=== PATIENT | female | born 1965 | race Caucasian/White ===

== ENCOUNTER → 2022-04-09 | Outpatient (CLI) | payer OTHER, SELFPAY ==
[2022-04-09 09:19] LABS: Absolute Lymphocyte Count 1.66 X10^3/uL (0.83-4.51); Absolute Neutrophil Count 4.6 X10^3/uL (2.0-7.7); Basophil# 0.04 X10^3/uL; Basophil% 0.6 % (0-1); Eosinophil# 0.14 X10^3/uL; Eosinophils% 2.1 % (0-5); Hematocrit 40.9 % (37-47); Hemoglobin 12.8 g/dL (12.0-15.0); Lymphocyte # 1.66 X10^3/ul (0.83-4.51); Lymphocyte % 24.4 % (19-41); Mean Corp Hgb Conc 31.3 g/dL (32-36); Mean Corpuscular Hgb 27.2 pg (27.0-32.0); Mean Corpuscular Volume 86.8 fL (81-99); Mean Platelet Vol. 8.6 fl (6.2-12.0); Monocyte# 0.37 X10^3/uL; Monocyte% 5.4 % (0-10); NRBC Flagged by Analyzer 0 % (0-5); Neutrophil # 4.57 X10^3/uL (2.7-7.7); Neutrophil % 67.1 % (47-70); Platelet Count 351 K/mm3 (150-450); RBC Distribution Width CV 15.1 % (11.6-14.6); RBC Distribution Width SD 48.3 fl (35.1-43.9); Red Blood Count 4.71 M/mm3 (4.2-5.4); White Blood Count 6.8 K/mm3 (4.4-11.0)
[2022-04-09 09:22] LABS: Prothrombin Time (Protime)PT. 12.6 SECONDS (11.7-14.9)
[2022-04-09 09:25] LABS: Erythrocyte Sedimentation Rate 46 mm/hr (0-30)
[2022-04-09 09:40] LABS: ALB/GLOB Ratio 0.7 RATIO (0.9-2.4); AST(SGOT) 21 U/L (15-37); Alanine Aminotransfer ALT/SGPT 31 U/L (13-56); Albumin, Serum 3.3 g/dL (3.2-5.0); Alkaline Phosphatase 195 U/L (45-117); Anion Gap 7 (5-15); BUN 12 mg/dL (7-18); Chloride 102 mmol/L (98-107); Creatinine, Serum 0.71 mg/dL (0.55-1.02); EST Glomerular Filtration Rate 91 mL/min (>60); Est Glom Filt Rate - Afr Amer 110 mL/min (>60); Ferritin 106 ng/mL (8-252); Globulin 4.6 g/dL (2.2-4.2); Glucose 106 mg/dL (74-106); LDH 200 U/L (84-246); Potassium 3.9 mmol/L (3.5-5.1); Protein, Total 7.9 g/dL (6.4-8.2); Sodium Level 139 mmol/L (136-145)
[2022-04-09 10:04] LABS: HIV - WCH Non-Reactive (Nonreactive)
[2022-04-10 15:08] LABS: Anti-Centromere B Ab <0.2 AI (0.0-0.9); Anti-Chromatin <0.2 AI (0.0-0.9); Anti-Jo <0.2 AI (0.0-0.9); Anti-Scleroderma-70 AB <0.2 AI (0.0-0.9); RNP Ab 0.2 AI (0.0-0.9); SJOGREN'S Anti-SS-A test < 0.2 AI (0.0-0.9); SJOGREN'S Anti-SS-B test < 0.2 AI (0.0-0.9); Smith Ab <0.2 AI (0.0-0.9)
[2022-04-10 19:16] LABS: Anti-Mitochondrial AB <20.0 Units (0.0-20.0); Anti-dsDNA Ab <1 IU/mL (0-9)
[2022-04-12 15:07] LABS: Angiotensin Convert Enzyme 41 U/L (14-82); Ceruloplasmin 41.1 mg/dL (19.0-39.0); Cytoplasmic Ab (C-ANCA) <1:20 titer (Neg:<1:20); HEPATITIS B SURFACE AG Negative (Negative); Hep C Antibodies Non Reactive (Non Reactive); Hepatitis A IgM Antibody Negative (Negative); Hepatitis B Core AB IgM Negative (Negative)
[2022-04-12 15:38] LABS: AFP, Tumor Marker < 1.8 ng/mL (0.0-9.2); Anti-Smooth Muscle ABS 8 Units (0-19); Copper, Serum or Plasma 174 ug/dL (80-158); Haptoglobin 235 mg/dL (33-346); Perinuclear Ab (P-ANCA) <1:20 titer (Neg:<1:20)
== END | disposition home or self-care (01) ==
LOC: LAB 08:50
PROVIDERS: PCP Physician Assistant; Referring Provider Nurse Practitioner Adult Health; Visit Provider Nurse Practitioner Adult Health
DX: K76.0 Fatty (change of) liver, not elsewhere classified (principal); K76.89 Other specified diseases of liver
CPT/HCPCS: 36415; 80053; 80074; 82105; 82140; 82164; 82390; 82525; 82728; 83010; 83036; 83516; 83615; 85025; 85610; 85652; 86140; 86225; 86235; 86256; 86703

== ENCOUNTER → 2022-04-22 | Outpatient (CLI) | payer OTHER, SELFPAY ==
--- NOTE | 2022-04-22 07:43 | US_ITS ---
STUDY: ABDOMINAL ULTRASOUND - ELASTOGRAPHY REASON FOR VISIT: Female, 57 years old. Fatty infiltration of the liver. TECHNIQUE: Liver stiffness measurements were obtained on a [employer] RS 85 ultrasound machine using a CA 1-7 probe following the SRU guidelines. 3 measurements were obtained using a 2-D-SWE method. The IQR/M was 15% suggesting a quality data set. TECHNICAL QUALITY: Adequate. COMPARISON: Comparison is made with prior study done earlier today. FINDINGS: Liver: Fatty infiltration of the liver. Median liver stiffness measured 9.3 kPa. US/Elastography Parenchyma/Organ IMPRESSION: Liver stiffness measures 9.3 kPa compatible with F2-F3 (Mild to moderate liver fibrosis) Metavir score. Electronically Signed: Armando Cheema MD at 14:14 EST ,
--- NOTE | 2022-04-22 07:43 | US_ITS ---
STUDY: ABDOMINAL ULTRASOUND - RIGHT UPPER QUADRANT REASON FOR VISIT: Female, 57 years old fatty liver, liver cysts TECHNIQUE: Ultrasound evaluation of the right upper quadrant was performed with real-time and static wong-scale imaging. TECHNICAL QUALITY: Adequate. COMPARISON: Comparison is made with prior CT scan of the abdomen and pelvis dated 01/17/2022. FINDINGS: Liver: The liver measures 16.5 cm. There is increased echogenicity consistent with fatty infiltration. The bile ducts are within normal limits. There is hepatic color flow. The direction of portal flow is hepatopetal. Multiple cysts are seen throughout the liver. The largest cyst is in the right lobe of liver and measures 7.8 cm x 6.3 cm x 7 cm. Gallbladder: Normal distended gallbladder. The gallbladder wall measures 2.0 mm. There is a negative sonographic Michael''s sign. There is no pericholecystic fluid. There is a solitary echogenic gallstone within the gallbladder. This measures 1.4 cm x 1.2 cm x 1.4 cm. This stone is in the neck of the gallbladder. Common Bile Duct (C.B.D.): The common bile duct measures 2.0 mm. Pancreas: There is nonvisualization of the pancreas due to overlying bowel gas. Right Kidney: Normal size of the right kidney. The right kidney measures 10.1 cm x 5.6 x 4.8 cm. Normal renal cortex. The right cortex measures 1.9 cm. There is no demonstrated renal mass or cyst. There is no right hydronephrosis. US/Abdomen Limited IMPRESSION: Fatty infiltration of the liver. Hepatic cysts. Solitary gallstone. Electronically Signed: Armando Cheema MD at 14:09 EST ,
== END | disposition home or self-care (01) ==
LOC: US 07:41
PROVIDERS: PCP Physician Assistant; Visit Provider Nurse Practitioner Adult Health
DX: K76.0 Fatty (change of) liver, not elsewhere classified (principal); K76.89 Other specified diseases of liver
CPT/HCPCS: 76705; 76981

== ENCOUNTER → 2022-05-25 | Outpatient (CLI) | payer OTHER, SELFPAY ==
--- NOTE | 2022-05-25 06:27 | MRI_ITS ---
STUDY: MR CHOLANGIOPANCREATOGRAPHY (MRCP) REASON FOR EXAM: Female, 57 years old. Polycystic liver disease. TECHNIQUE: Standard MRCP technique was utilized. 3-D thick slab reconstructions were performed. COMPARISON: Abdominal ultrasound, April 22, 2022. CT the abdomen and pelvis, January 17, 2022. FINDINGS: Gall Bladder: There is a 1.3 x 1.0 x 1.0 cm calculus in the gallbladder. The gallbladder is otherwise unremarkable. Cystic duct: Normal with no demonstrated fixed filling defect. Intrahepatic ducts: Normal visualized intrahepatic ducts with no demonstrated fixed filling defect, dilation or stricture. Common hepatic duct: Normal with no demonstrated fixed filling defect, dilation or stricture. Common bile duct: Normal with no demonstrated fixed filling defect, dilation or stricture. Pancreatic duct: Normal with no demonstrated fixed filling defect, dilation or stricture. The lung bases are clear. The heart is normal in size. There is a prominent left lateral lobe of the liver. There are multiple cysts within the liver. The largest in segment 5, measures 7.7 x 5.8 x 7.3 cm. Normal pancreas. Normal spleen. Normal adrenal glands. Normal kidneys. Normal IVC and abdominal aorta. Normal retroperitoneum. Normal stomach. Normal visualized small bowel. Normal visualized skull MRI/MRCP Abdomen without Contrast IMPRESSION: 1. Gallstone without acute cholecystitis. Otherwise normal MR Cholangiopancreatography (MRCP). 2. Multiple hepatic cysts. 3. No other evidence of upper abdominal abnormality. Electronically Signed: Dennis Cummins DO at 22:57 EDT ,
== END | disposition home or self-care (01) ==
LOC: MRI 06:27
PROVIDERS: PCP Physician Assistant; Referring Provider Nurse Practitioner Adult Health; Visit Provider Nurse Practitioner Adult Health
DX: R74.8 Abnormal levels of other serum enzymes (principal); K76.0 Fatty (change of) liver, not elsewhere classified; Q44.6 Cystic disease of liver
CPT/HCPCS: 74181

== ENCOUNTER → 2022-11-02 | Outpatient (CLI) | payer OTHER, SELFPAY ==
--- NOTE | 2022-11-02 10:50 | TOBX_PTH ---
PATIENT: CARMEN SIDDIQI [facility] U#:[id number] AGE/SX: 57/F ROOM: RE11/02/[address]: Dr. Bassam Johnson MD : 1965 BED: DIS: 11/02/2022 SPEC #: [id number] RECD: 11/02/22 15:04 STATUS: DENIS REEde #: [id number] VIKKI: 11/02/22 10:[address]: Bassam Johnson DEPT: SURGICAL PATHOLOGY RECD BY: Jaki Swartz ENTERED: 11/03/22 08:54 SP TYPE: TONGUE BX OTHR DR: DON Schwartz [facility] Tissues: Tongue, NOS Procedures: Surgery Specimen Level IV HEADER OPERATION: Left excision tongue lesion PRE-OP DIAGNOSIS: Neoplasm of tongue TISSUE SUBMITTED: Left lateral tongue lesion MICROSCOPIC DIAGNOSIS Left lateral tongue lesion, excision: A piece of squamous mucosa with acanthosis, parakeratosis, reactive changes and subepithelial fibrosis. Negative for malignancy. See comment. ARMEN:coby 11/04/2022 COMMENT The findings may represent irritation fibroma. Clinical correlation and appropriate follow up are necessary. MICROSCOPIC DESCRIPTION Slides are reviewed. GROSS DESCRIPTION Received in fixative is one container labeled with the patient's name and designated left lateral tongue lesion. The specimen consists of a piece of collins mucosal tissue measuring 0.3 x 0.2 x 0.1 cm. The entire specimen is submitted in one cassette. / ARMEN:coyb 11/03/2022 TC:5 CPT: 52258
== END | disposition home or self-care (01) ==
LOC: LABSPEC 15:38
PROVIDERS: PCP Physician Assistant; Referring Provider Otolaryngology; Visit Provider Otolaryngology
DX: D37.02 Neoplasm of uncertain behavior of tongue (principal)
CPT/HCPCS: 88305

== ENCOUNTER 2023-05-17 09:16 | Day surgery (SDC) | payer OTHER, SELFPAY ==
[2023-05-17 09:33] VITALS: BP 142/65; PULSE 92; RESP 16; TEMP 36.8; O2SAT 97; BMI 35.0
--- NOTE | 2023-05-17 09:33 | HP.PCM_ITS ---
History and Physical Date of Admission: 05/17/23 CARMEN SIDDIQI, is a 58 F who presents to the office today for follow up. f/u NAFLD, liver cysts No further RUQ discomfort. When she established with us in 03/2022 she reported RUQ discomfort after long day at work, had been bothersome for several months. Mild intermittent acid reflux after certain foods is managed with otc famotidine prn. No nausea, vomiting, dysphagia. Bowels are regular. No melena or hematochezia. Liver cyst -- Incidental finding of liver cyst on MRI that was done for back pain--MRI in 08/2021 showed an 8 cm lesion in right lobe of liver, possible cyst or hemangioma, it was larger than on prior MRI. This was followed by RUQ US in 08/2021--8.1 cm right hepatic cyst, fatty liver, [address] abd pel with IV contrast was done in 12/2021 at [facility] when she presented with abdominal pain; CT showed 6.7 cm cyst in right lobe of liver, 2 small cysts in left lobe of liver. 04/2022 I viewed images of liver on CT from [facility] with Dr Khan--polycystic liver disease, possible they are causing pain by stretching the capsule. He recommended MRCP which was done on 05/25/22: multiple hepatic cysts, gallstone w/o cholecystitis, otherwise normal. She declined referral to general surgery for gallstone since asymptomatic. NAFLD -- 04/2022 Liver elastography revealed liver stiffness 9.3 kpa compatible with F2-F3 Metavir score. Biochemical eval: lots of inflammation--esr 46, crp 30; a1c 6 so prediabetic range; alk phos 196; elevated copper, ceruloplasmin. Sh e started vitamin E 800 IU daily in 04/2022. Also working on wt loss, increased exercise, fewer sweets. on disability secondary to accident, had TBI, so she takes care of him as well as helping her father. She works party plan sales unit sales leader. OV 02/26/2023: Patient came for liver cyst, fatty liver/NAFLD. Does not have abdominal pain. No acute symptoms. No fever. No dysuria. ROS Const Constitutional: No fatigue ENT ENT: No difficulty swallowing Gastro GI: No abdominal pain, belching, bloating, change in bowel habits, change in stool character, coffee ground emesis, constipation, cramping, diarrhea, heartburn, difficulty swallowing, feeling full early, excessive flatus, incontinent of stools, Vomiting blood/hematemesis, Blood in stool, loose stools, Black,tarry stools, nausea/dyspepsia, pain with swallowing, vomiting or other Musc Musculoskeletal: No joint pain Skin Skin: No yellowing of the eye or itchy eyes Psych Psychiatric: No anxiety and No depression Endo Endocrine: No fatigue Aller/Imm Allergy/Immunologic: No itchy eyes Rayray/Lymp Hematologic/Lymphatic: No easy bleeding or easy bruising Exam Const General: cooperative, no acute distress and well developed Nutritional Appearance: average body habitus Orientation: alert, awake and oriented x3 HENMT Head: normocephalic and atraumatic Nose: external nose normal Face and sinus: normal facial exam Mouth: moist mucous membranes Eyes Pupils: PERRL EOM: EOM intact bilaterally Neck Neck: normal visual inspection, no meningeal signs and trachea midline Carotids: no bruits Chest Chest palpation & inspection: normal inspection of the chest Resp Effort & Inspection: normal respiratory effort and symmetric chest movement Auscultation: Bilateral: Clear to Auscultation Cardio Palpation: normal PMI Rate: regular rate Rhythm: regular rhythm Heart Sounds: S1 normal and S2 normal GI Auscultation: normal bowel sounds Percussion: normal to percussion Palpation: soft, no hepatosplenomegaly and no guarding Other: Liver not enlarged. Spleen not palpable. No tenderness guarding or rigidity. General: bimanual renal exam normal bilaterally, bladder normal to inspection and bladder normal to palpation Bimanual Exam- Vagina & Uterus: bladder normal to palpation Musc Musculoskeletal: No joint tenderness, joint redness, joint warmth or decreased range of motion Thoracic/Lumbar Spine: thor and lumb spine abnorm to inspection Skin General: rashes and/or lesions noted, turgor normal and no erythema Wounds: wound noted Neuro General: patient alert, patient awake, patient oriented x3 and no focal motor deficits Speech: speech normal Motor: muscle tone normal throughout Extrem General: normal exam except as noted Psych Appearance: grossly normal Mood: congruent mood Affect: normal affect Attitude: cooperative Quality Reporting Tobacco Screening ([facility] [address]) Smoking Status: Never smoker Assessment and Plan Assessment and Plan (1) Liver, polycystic: Status: Chronic Plan: Patient came to follow-up with incidental finding of liver cyst and MRI done for back pain in June 2021 about 8 cm in the right lobe of liver. After that patient had CT abdomen in December 2021 which shows liver cyst 6.7 cm similar in size. After that patient had liver ultrasound with elastography and MRCP which showed similar size of the liver cyst. MRCP shows multiple liver cyst largest one 7.7 x 5.8 x 7.3 cm in segment 5. There is incidental finding of 1.3 x 1.0 x 1.0 calculus in GB but otherwise gallbladder unremarkable with normal intrahepatic and extrahepatic biliary system with no filling defect or stricture or dilatation. Normal spleen and pancreas. Normal kidneys and adrenal gland. Overall it seems stable over 1.5 years. Patient does not have symptoms/asymptomatic. Review increased size more than 7 cm there is increased chance of rupture more so more on the surface of the segment 5. Patient is referred to [facility] for second opinion and also possible percutaneous aspiration with sclerosing is not. Other options are laparoscopic deroofing or complete cyst excision. I do not order repeat CT or MRI as [facility] would like to repeat in the system before intervention. Total time of the visit including total time spent in counseling or coordination of care, (more than 50% of the total time, spent in obtaining medical information from nurses and other ancillary care providers,explaining to the patient about labs, imaging, differential diagnosis and management of liver cyst is 40 minutes. (2) NAFLD (nonalcoholic fatty liver disease): Status: Chronic Plan: Last blood work reviewed. A1c 6.0 suggestive of prediabetes. Liver elastography 9.3 kPa suggestive of mild to moderate liver fibrosis. Rest of the liver ultrasound with similar increased echogenicity and multiple liver cyst and largest liver cyst as mentioned above. I discussed the risk factors, pathogenesis, natural history complications including HCC of metabolic dysfunction associated steatotic liver disease, MASLD and patient affirmed understanding. There is no approved FDA medication for NAFLD but medications used for diabetes and weight loss mainly to metformin, pioglitazone and GLP-1 agonist have been found to decrease fatty content and fibrosis score found in the research literature. As patient has prediabetes as per last blood work therefore discussed the benefits and risk of metformin and patient agreed to take it. Prescription for metformin sent to the patient's pharmacy. Orders: Orders AFP, Tumor Marker 1 Week K76.0 - Fatty (change of) liver, not elsewhere classified, Q44.6 - Cystic disease of liver, R74.8 - Abnormal levels of other serum enzymes CBC W/Diff, Automated 1 Week K76.0 - Fatty (change of) liver, not elsewhere clas sified, Q44.6 - Cystic disease of liver, R74.8 - Abnormal levels of other serum enzymes Hemoglobin A1c 1 Week K76.0 - Fatty (change of) liver, not elsewhere classified, Q44.6 - Cystic disease of liver, R74.8 - Abnormal levels of other serum enzymes CRP 1 Week K76.0 - Fatty (change of) liver, not elsewhere classified, Q44.6 - Cystic disease of liver, R74.8 - Abnormal levels of other serum enzymes Comprehensive Metabolic Profil 1 Week K76.0 - Fatty (change of) liver, not elsewhere classified, Q44.6 - Cystic disease of liver, R74.8 - Abnormal levels of other serum enzymes Prothrombin Time w/INR 1 Week K76.0 - Fatty (change of) liver, not elsewhere classified, Q44.6 - Cystic disease of liver, R74.8 - Abnormal levels of other serum enzymes Lipid Profile 1 Week K76.0 - Fatty (change of) liver, not elsewhere classified, Q44.6 - Cystic disease of liver, R74.8 - Abnormal levels of other serum enzymes BREANNE w/ Reflex Mult Confirm 1 Week K76.0 - Fatty (change of) liver, not elsewhere classified, Q44.6 - Cystic disease of liver, R74.8 - Abnormal levels of other serum enzymes Medications: New metformin 500 mg PO BID 1 month 60 tabs 2RF I have examined the patient and the H&P has been reviewed. There are no clinical changes since date of exam.
[2023-05-17] MEDS: Lactated Ringers 1,000 ML 15 ML IV (09:49)
--- NOTE | 2023-05-17 10:30 | COLBX_PTH ---
PATIENT: CARMEN SIDDIQI LOC: [facility] U#:[id number] AGE/SX: 58/F ROOM: RE05/17/[address]: Dr. Darrin Khan DO : 1965 BED: DIS: 05/17/2023 SPEC #: [id number] RECD: 05/17/23 11:29 STATUS: DENIS REEde #: [id number] VIKKI: 05/17/23 10:[address]: Darrin Khan DEPT: SURGICAL PATHOLOGY RECD BY: Jaki Swartz ENTERED: 05/17/23 11:59 SP TYPE: COLON BX OTHR DR: DON Schwartz Tissues: A - Descending colon B - Rectum, NOS Procedures: Surgery Specimen Level IV HEADER OPERATION: Colonoscopy with biopsy PRE-OP DIAGNOSIS: Liver, polycystic, NAFLD TISSUE SUBMITTED: A- Descending colon polyp biopsy, B- Rectum polyp biopsy MICROSCOPIC DIAGNOSIS A. Descending colon polyp, biopsy; Fragments of hyperplastic polyp. B. Rectum polyp, biopsy; Hyperplastic polyp. / 05/18/2023 MICROSCOPIC DESCRIPTION Slides are reviewed. GROSS DESCRIPTION A. Received in fixative is one container labeled with the patient's name and designated Liver Descending colon polyp biopsy. The specimen consists of multiple irregular fragments of light collins soft tissue that in aggregate measure 1.0 x 0.3 x 0.1 cm. The specimen is totally submitted in one cassette. B. Received in fixative is one container labeled with the patient's name and designated Rectum polyp biopsy. The specimen consists of one irregular fragment of light collins soft tissue that measures 0.3 x 0.3 x 0.1 cm. The specimen is totally submitted in one cassette. / 05/17/23 TC:1 CPT: 56392r9
[2023-05-17 10:51] VITALS: BP 142/65; PULSE 86; RESP 16; TEMP 36.4; O2SAT 97
--- NOTE | 2023-05-17 10:53 | OP.CCLET_ITS ---
05/17/2023 Cely Ball Re : Colonoscopy procedure for Sushila Richardson Quinn This procedure was performed on Wednesday, May 17, 2023. My impressions and recommendations are as follows: Impressions : - Two 1 to 2 mm polyps in the rectum and in the descending colon, removed with a cold snare. Resected and retrieved. - Diverticulosis in the recto-sigmoid colon, in the sigmoid colon, in the descending colon and in the ascending colon. Recommendations : - Discharge patient to home. - Resume previous diet. - Continue present medications. - Await pathology results. - Repeat colonoscopy in 5 years for surveillance. My findings are described in the full procedure note, which is enclosed. If I can be of further assistance, please feel free to contact me at . Sincerely, Darrin Khan, 05/17/2023 10:53:01 AM This report has been signed electronically.
--- NOTE | 2023-05-17 10:53 | OP.COLON_ITS ---
Patient Name: Sushila Fischer Procedure Date: 05/17/2023 10:27 AM Date of : 1965 Age: 58 Procedure: Colonoscopy Indications: Screening for colorectal malignant neoplasm Providers: Darrin Khan DO Medicines: Monitored Anesthesia Care Patient Profile: This is a 58 year old female. Refer to note in patient chart for documentation of history and physical. Last Colonoscopy: date unknown. Unable to locate last colonoscopy report. Complications: No immediate complications. Procedure: Pre-Anesthesia Assessment: - Prior to the procedure, a History and Physical was performed, and patient medications and allergies were reviewed. The patient is competent. The risks and benefits of the procedure and the sedation options and risks were discussed with the patient. All questions were answered and informed consent was obtained. Patient identification and proposed procedure were verified by the physician in the pre-procedure area. Mental Status Examination: alert and oriented. Airway Examination: normal oropharyngeal airway and neck mobility. Respiratory Examination: clear to auscultation. CV Examination: normal. Prophylactic Antibiotics: The patient does not require prophylactic antibiotics. Prior Anticoagulants: The patient has taken no anticoagulant or antiplatelet agents. ASA Grade Assessment: II - A patient with mild systemic disease. After reviewing the risks and benefits, the patient was deemed in satisfactory condition to undergo the procedure. The anesthesia plan was to use monitored anesthesia care (MAC). Immediately prior to administration of medications, the patient was re-assessed for adequacy to receive sedatives. The heart rate, respiratory rate, oxygen saturations, blood pressure, adequacy of pulmonary ventilation, and response to care were monitored throughout the procedure. The physical status of the patient was re-assessed after the procedure. After I obtained informed consent, the scope was passed under direct vision. Throughout the procedure, the patient's blood pressure, pulse, and oxygen saturations were monitored continuously. The Colonoscope was introduced through the anus and advanced to the cecum, identified by appendiceal orifice and ileocecal valve. The colonoscopy was performed without difficulty. The patient tolerated the procedure well. The quality of the bowel preparation was adequate. Scope In: 10:35:23 AM Scope Withdrawal Time 0 hours 7 minutes 23 seconds Scope Out: 10:46:53 AM Total Procedure Duration Time 0 hours 11 minutes 30 seconds Findings: The perianal and digital rectal examinations were normal. Two sessile polyps were found in the rectum and descending colon. The polyps were 1 to 2 mm in size. These polyps were removed with a cold snare. Resection and retrieval were complete. Verification of patient identification for the specimen was done. Estimated blood loss was minimal. Multiple small and large-mouthed diverticula were found in the recto-sigmoid colon, sigmoid colon, descending colon and ascending colon. Impression: - Two 1 to 2 mm polyps in the rectum and in the descending colon, removed with a cold snare. Resected and retrieved. - Diverticulosis in the recto-sigmoid colon, in the sigmoid colon, in the descending colon and in the ascending colon. Recommendation: - Discharge patient to home. - Resume previous diet. - Continue present medications. - Await pathology results. - Repeat colonoscopy in 5 years for surveillance. Procedure Code(s): --- Professional --- 50991, Colonoscopy, flexible; with removal of tumor(s), polyp(s), or other lesion(s) by snare technique CPT copyright 2021 [employer]. All rights reserved. The codes documented in this report are preliminary and upon him coder review may be revised to meet current compliance requirements. Darrin Khan DO 05/17/2023 10:53:01 AM This report has been signed electronically. Number of Addenda: 0 Note Initiated On: 05/17/2023 10:27 AM
[2023-05-17 10:55] VITALS: BP 113/57; BP 142/65; PULSE 84; RESP 16; O2SAT 100
[2023-05-17 11:00] VITALS: BP 113/65; BP 142/65; PULSE 84; RESP 16; TEMP 36.6; O2SAT 100
[2023-05-17 11:13] VITALS: BP 142/65
== END 2023-05-17 11:23 | disposition home or self-care (01) ==
LOC: EN 09:17 → AC 09:19
PROVIDERS: PCP Physician Assistant; Referring Provider Internal Medicine Gastroenterology; Visit Provider Internal Medicine Gastroenterology
PROC: 0DJD8ZZ Inspection of Lower Intestinal Tract, Via Natural or Artificial Opening Endoscopic (ICD-10-PCS; CPT 45378; principal; 2023-05-17 10:25)
DX: Z12.11 Encounter for screening for malignant neoplasm of colon (principal); K57.30 Diverticulosis of large intestine without perforation or abscess without bleeding; Q44.6 Cystic disease of liver; Z90.49 Acquired absence of other specified parts of digestive tract; K62.1 Rectal polyp; K76.0 Fatty (change of) liver, not elsewhere classified; R74.8 Abnormal levels of other serum enzymes
CPT/HCPCS: 45385; 88305; J7120; J2405

== ENCOUNTER → 2023-08-23 | Outpatient (CLI) | payer OTHER, SELFPAY ==
--- NOTE | 2023-08-23 09:21 | US_ITS ---
STUDY: ABDOMINAL ULTRASOUND - ELASTOGRAPHY REASON FOR VISIT: Female, 58 years old. Nonalcoholic fatty liver disease TECHNIQUE: Liver stiffness measurements were obtained on a [employer] RS 85 ultrasound machine using a CA 1-7 probe following the SRU guidelines. 3 measurements were obtained using a 2-D-SWE method. TheIQR/M was 12% suggesting a quality data set. TECHNICAL QUALITY: Adequate. COMPARISON: 04/22/2022 FINDINGS: Liver: 7.5 cm cyst in the right lobe of the liver. Median liver stiffness measured 8.2 kPa. Abdomen: Shadowing gallstone in the gallbladder consistent with cholelithiasis. US/ABD Limited w/ Elastography IMPRESSION: Liver stiffness measures 8.2 kPa compatible with F2-F3 Metavir score. Electronically Signed: Jack Mayfield MD at 12:29 EDT ,
== END | disposition home or self-care (01) ==
LOC: US 09:19
PROVIDERS: PCP Physician Assistant; Referring Provider Internal Medicine; Visit Provider Internal Medicine
DX: Q44.6 Cystic disease of liver (principal); K76.0 Fatty (change of) liver, not elsewhere classified; R74.8 Abnormal levels of other serum enzymes
CPT/HCPCS: 76705; 76981

== ENCOUNTER → 2024-01-11 | Outpatient (CLI) | payer OTHER, SELFPAY ==
[2024-01-11 16:31] LABS: Absolute Lymphocyte Count 2.71 X10^3/uL (0.83-4.51); Basophil# 0.05 X10^3/uL; Basophil% 0.7 % (0-1); Eosinophil# 0.27 X10^3/uL; Eosinophils% 3.5 % (0-5); Hemoglobin 12.4 g/dL (12.0-15.0); Lymphocyte # 2.71 X10^3/ul (0.83-4.51); Lymphocyte % 35.3 % (19-41); Mean Corp Hgb Conc 32.6 g/dL (32-36); Mean Corpuscular Hgb 29.7 pg (27.0-32.0); Mean Corpuscular Volume 90.9 fL (81-99); Mean Platelet Vol. 9.5 fl (6.2-12.0); Monocyte# 0.63 X10^3/uL; Monocyte% 8.2 % (0-10); NRBC Flagged by Analyzer 0 % (0-5); Platelet Count 283 K/mm3 (150-450); RBC Distribution Width CV 12.7 % (11.6-14.6); RBC Distribution Width SD 41.6 fl (35.1-43.9); Red Blood Count 4.18 M/mm3 (4.2-5.4); White Blood Count 7.7 K/mm3 (4.4-11.0)
[2024-01-11 17:09] LABS: AST(SGOT) 22 U/L (15-37); Alanine Aminotransfer ALT/SGPT 31 U/L (13-56); Albumin, Serum 3.8 g/dL (3.2-5.0); Alkaline Phosphatase 146 U/L (45-117); Anion Gap 5 (5-15); BUN 15 mg/dL (7-18); BUN/Creat Ratio 20.7 RATIO (10-20); Calcium,Total 9.2 mg/dL (8.5-10.1); Chloride 105 mmol/L (98-107); Cholesterol 218 mg/dL (200); Creatinine, Serum 0.73 mg/dL (0.55-1.02); EST Glomerular Filtration Rate 88 mL/min (>60); Est Glom Filt Rate - Afr Amer 106 mL/min (>60); Globulin 3.7 g/dL (2.2-4.2); Glucose 101 mg/dL (74-106); High Density Lipoprotein 64 mg/dL; Potassium 3.9 mmol/L (3.5-5.1); Protein, Total 7.5 g/dL (6.4-8.2); Sodium Level 135 mmol/L (136-145); Triglycerides 197 mg/dL; Very Low Density Lipoprotein 39 mg/dL (5-40)
[2024-01-11 17:16] LABS: International Normalized Ratio 0.9; Prothrombin Time (Protime)PT. 12.6 SECONDS (11.7-14.9)
[2024-01-11 20:03] LABS: Hemoglobin A1c 5.8 % (3.8-5.6)
== END | disposition home or self-care (01) ==
PROVIDERS: PCP Physician Assistant; Referring Provider Internal Medicine; Visit Provider Internal Medicine
DX: Q44.6 Cystic disease of liver (principal); K76.0 Fatty (change of) liver, not elsewhere classified; R74.8 Abnormal levels of other serum enzymes
CPT/HCPCS: 36415; 80053; 80061; 83036; 85025; 85610; 86140

== ENCOUNTER 2024-06-27 07:49 | Outpatient (CLI) | payer OTHER, SELFPAY ==
--- NOTE | 2024-06-27 07:53 | US_ITS ---
PROCEDURE: US ABDOMEN LIMITED W/ ELASTOGRAPHY 06/27/2024 REASON FOR EXAM: LIVER FIBROSIS, POLYCYSTIC LIVER COMPARISON: MRI abdomen dated 05/25/2022. TECHNIQUE: Right upper quadrant abdominal ultrasound. ElastQ Imaging shear wave elastography for non-invasive assessment of liver tissue stiffness. FINDINGS: LIVER: Size: Unremarkable Length: 14.5 cm Echotexture: Normal. Contour: Normal Lesions: Anechoic mass, right hepatic lobe measuring 6.3 x 7.9 x 6.2 cm. Blood flow: Hepatopetal. Elastography: EQI Med: 7.6 kPa EQI Med [place]: 1.58 m/s GALLBLADDER: Hyperechogenic focus in the lumen with posterior acoustic shadowing measuring 1.8 x 1.7 cm. COMMON BILE DUCT: Normal 0.7 cm in diameter.. PANCREAS: Normal Right kidney: Size measures 10.2 x 5.4 x 5.0 cm. Cortex measures 1.4 cm. US/ABD Limited w/ Elastography IMPRESSION: 1. F 2 to F 3, moderate to severe likelihood of significantly clinical hepatic fibrosis. 2. Cholelithiasis. 3. Large right hepatic lobe cyst. Reference Values: SRU <1.37 m/s (5.7kPa): No to mild fibrosis 1.37 m/s - 2.2 m/s: Moderate to severe fibrosis >2.2 m/s (15kPa): Significant fibrosis / cirrhosis METAVIR Score F2 or higher: 1.34 m/s (5.7kPa) F3 or higher: 1.55 m/s (7.3kPa) F4: 1.80 m/s (10kPa) Reading Location: [facility]
[2024-06-27 08:55] LABS: Absolute Lymphocyte Count 1.61 X10^3/uL (0.83-4.51); Absolute Neutrophil Count 2.8 X10^3/uL (2.0-7.7); Basophil# 0.03 X10^3/uL; Basophil% 0.6 % (0-1); Eosinophil# 0.15 X10^3/uL; Hematocrit 40.2 % (37-47); Hemoglobin 13.4 g/dL (12.0-15.0); Lymphocyte # 1.61 X10^3/ul (0.83-4.51); Lymphocyte % 32.5 % (19-41); Mean Corp Hgb Conc 33.3 g/dL (32-36); Mean Corpuscular Hgb 29.3 pg (27.0-32.0); Mean Platelet Vol. 8.8 fl (6.2-12.0); Monocyte# 0.32 X10^3/uL; Monocyte% 6.5 % (0-10); NRBC Flagged by Analyzer 0 % (0-5); Neutrophil # 2.82 X10^3/uL (2.7-7.7); Neutrophil % 56.8 % (47-70); Platelet Count 284 K/mm3 (150-450); RBC Distribution Width CV 12.5 % (11.6-14.6); RBC Distribution Width SD 40.3 fl (35.1-43.9); Red Blood Count 4.57 M/mm3 (4.2-5.4)
[2024-06-27 09:01] LABS: International Normalized Ratio 0.9; Prothrombin Time (Protime)PT. 12.4 SECONDS (11.7-14.9)
[2024-06-27 09:34] LABS: ALB/GLOB Ratio 1.3 RATIO (0.9-2.4); AST(SGOT) 28 U/L (<=31); Alanine Aminotransfer ALT/SGPT 26 U/L (<=34); Albumin, Serum 4.4 g/dL (3.5-5.0); Alkaline Phosphatase 166 U/L (35-104); Anion Gap 10 (5-15); BUN 12 mg/dL (4-19); BUN/Creat Ratio 18.5 RATIO (10-20); CRP 8.17 mg/L (0.0-3.0); Calcium,Total 9.3 mg/dL (7.6-11.0); Carbon Dioxide 25.3 mmol/L (21.0-32.0); Chloride 103 mmol/L (98-108); Cholesterol 210 mg/dL (<=200); Creatinine, Serum 0.64 mg/dL (0.70-1.20); EST Glomerular Filtration Rate 102 (>60); Globulin 3.4 g/dL (2.2-4.2); Glucose 110 mg/dL (70-99); High Density Lipoprotein 58 mg/dL; Low Density Lipoprotein Calc. 117 mg/dL; Potassium 4.4 mmol/L (3.3-5.1); Protein, Total 7.8 g/dL (5.9-8.4); Sodium Level 138 mmol/L (133-145); Total Bilirubin 0.22 mg/dL (0.00-1.30); Triglycerides 175 mg/dL; Very Low Density Lipoprotein 35 mg/dL (5-40); Vitamin D,25 Hydroxy 31.9 ng/mL (30-100); cholesterol:hdl ratio screen 3.63
[2024-06-28 09:08] LABS: ANTINUCLEAR ANTIBODIES DIRECT Negative (Negative)
[2024-06-29 16:08] LABS: Alkaline Phosphatase, Serum 167 IU/L (44-121); Bone Fraction 34 % (14-68); GGTP 83 IU/L (0-60); Intestinal Fraction 0 % (0-18); Liver Fraction 66 % (18-85)
== END 2024-06-27 23:59 | disposition home or self-care (01) ==
PROVIDERS: PCP Physician Assistant; Referring Provider Internal Medicine; Visit Provider Internal Medicine
DX: K76.0 Fatty (change of) liver, not elsewhere classified (principal); R74.8 Abnormal levels of other serum enzymes; Q44.6 Cystic disease of liver; E55.9 Vitamin D deficiency, unspecified
CPT/HCPCS: 36415; 76705; 76981; 80053; 80061; 82306; 82977; 84075; 84080; 84443; 85025; 85610; 86038; 86140; 86225; 86235